=== PATIENT | female | born 1995 | race Caucasian/White ===

== ENCOUNTER 2025-01-02 16:21 | Emergency (ER) | payer OTHER, SELFPAY ==
[2025-01-02 16:22] VITALS: BMI 21.3
[2025-01-02 16:28] VITALS: BP 131/95
[2025-01-02 17:00] LABS: Hematocrit 38.9 % (37.0-47.0); Hemoglobin 13.3 g/dL (12.0-16.0); Mean Corp Hgb Conc. 34.2 g/dL (33.0-37.0); Mean Corpuscular Volume 89.2 fL (81.0-99.0); Nucleated Red Blood Cells % 0 %; Platelet Count 345 10^3/uL (130-400); Red Cell Dist. Width 13.0 % (11.5-14.5)
[2025-01-02 17:14] LABS: HCG, Serum Qualitative Screen Negative
[2025-01-02 17:20] LABS: ALT (SGPT) 16 U/L (0-35); AST (SGOT) 28 U/L (14-36); Albumin 4.8 g/dl (3.5-5.0); Alkaline Phosphatase 91 U/L (38-126); Blood Urea Nitrogen 8 mg/dl (7-17); Calcium 10.0 mg/dl (8.4-10.2); Carbon Dioxide 23 mmol/L (22-30); Chloride 107 mmol/L (98-107); Glucose 107 mg/dl (70-99); Potassium 3.8 mmol/L (3.5-5.1); Sodium 138 mmol/L (135-145); Total Protein 7.6 g/dl (6.3-8.2); eGFR > 60.00
[2025-01-02 18:23] VITALS: BP 126/81
[2025-01-02 18:30] VITALS: BP 126/81
[2025-01-02 19:00] VITALS: BP 110/74
--- NOTE | 2025-01-02 19:56 | ED.GENMED ---
History of Present Illness
General
Chief Complaint: Numbness
Source: patient
Exam Limitations: none
Time Seen by Provider: 01/02/25 18:01
Nursing documentation reviewed up to this point in time: agreed with
History of Present Illness
History of Present Illness:
Patient to ED with complaint of headache, neck pain with numbness and tingling to her RUE, low temperature reading at home. Denies fever/chills, recent illness. No n/v/. Reports occasional diarrhea. No abdominal pain. Denies any cp/pressure, SOB.
No history of trauma. Had similar symptoms approx 1 year ago, resolved without treatment
Past History
Past History
ED Past Medical History: None
Social History
Tobacco: Non-smoker
Personal: Single
Living: with family
Review of Systems
Review of Systems
Allergies reviewed?: Yes
All Other Systems: ROS reviewed and negative except as documented in HPI and ROS
Constitutional: Reports no symptoms
EENT: Reports no symptoms
Respiratory: Reports no symptoms
Cardiac: Reports no symptoms
ABD/GI: Reports no symptoms
: Reports no symptoms
Musculoskeletal: Reports neck pain
Skin: Reports no symptoms
Neurological: Reports headache and numbness (Numbness and tingling RUE)
Psychiatric: Reports no symptoms
Phy Exam
General Physical Exam
General Presentation: well appearing and no apparent distress
General age: appears stated age
General Skin: warm and dry
General Habitus: normal
ENT Exam
ENT Exam: EOMI, TM's normal, pharynx normal, neck supple, normocephalic, swallowing well and other (No meningeal s/s)
Eye Exam
Eye Exam: PERRL, EOMI and conjunctiva normal
Cardiovascular Exam
Cardiovascular Exam: regular rate/rhythm and no edema
Pulmonary Exam
Pulmonary Exam: lungs clear and no respiratory distress
Gastrointestinal Exam
Gastrointestinal Exam: normal bowel sounds, non tender, soft and no organomegaly
Neurological Exam
Neurological Exam: alert, oriented x3, no motor deficits, no sensory deficits and speech normal
Musculoskeletal Exam
Musculoskeletal Exam: full ROM and neuro vasc intact
Skin Exam
Skin Exam: normal color, warm/dry and no rash
Psychiatric Exam
Psychiatric Exam: normal mood/affect
Course
Orders/Labs/Results
Orders:
Orders
01/02/25 16:31
Test Result ONCE
01/02/25 16:38
C-Reactive Protein Urgent
Comment: ADD ON
Complete Blood Count/With Diff Urgent
Comprehensive Metabolic Panel Urgent
Erythrocyte Sed Rate Urgent
Comment: ADD ON
HCG, Serum Qualitative Screen Urgent
Lyme Progressive Urgent
Comment: ADD ON
TSH Reflex To Free T4 Urgent
Comment: ADD ON
01/02/25 19:15
Add On- LAB Urgent
Tests Added?: TSH reflex free T4, sed rate, crp, lyme progressive
01/02/25 19:16
CT Head W/o Iv Contrast Urgent
Comment:
Reason For Exam: pain
Cervical Spine wo Contrast CT [CT Cervical Spine W/o Iv Contr] Urgent
Comment:
Reason For Exam: pain, RUE weakness, numbness
Abnormal Lab Results
01/02/25
16:38
Absolute Lymphs (auto) 3.9 H 10^3/uL
(1.2-3.4)
Glucose 107 H mg/dl
(70-99)
01/02/25 16:38
01/02/25 16:38
Vital Signs
Initial and Last Documented VS:
Initial Vital Signs
Temp Pulse Resp BP Pulse Ox
98.1 F 72 16 131/95 100
01/02/25 16:28 01/02/25 16:28 01/02/25 16:28 01/02/25 16:28 01/02/25 16:28
Last Documented Vital Signs
Temp Pulse Resp BP Pulse Ox
98.1 F 68 17 109/86 100
01/02/25 16:28 01/02/25 18:30 01/02/25 18:30 01/02/25 20:00 01/02/25 20:01
*Radiology
Radiology exam reviewed: radiology read reviewed
*Pulse Oximetry
SaO2: 100
Oxygen Mode of Delivery: Room air
Patient hypoxic: no
*Critical Care Note
Total Time (30-74mins, 75-104mins- exclusive of procedures): Not Applicable
Update Note
Update Note:
Patient to ED with report of neck pain, nubness and tingling to RUE, low body temp at home. VSS, she remains afebrile (98.1). Labs reviewed. CBC, CMP, TSH, inflammatory markers - no concerning findings. CT of head, neck neg for acute findings.
WIll discharge home and she will ry [facility] as she had orignially planned. Given instructions on s/s to return to ED and she is agreeable to plan.
ED Attending Note
-
Portions of this chart may have been created with voice recognition software.� Occasional wrong word or��sound alike� substitutions may have occurred due to the inherent limitations of voice recognition software.
Discharge Plan
Departure
Patient Disposition: Home (Routine Discharge)
Date of Disposition: 01/02/25
Time of Disposition: 21:01
Patient with high blood pressure during this ER visit?: No
Condition: Good
Covid-19: Not Applicable
Discharge Problem:
Arm numbness, Neck pain
Instructions: Paresthesia (DC), Neck pain - ED (DC)
Prescriptions:
No Action
amoxicillin-pot clavulanate [Augmentin] 1 EACH tablet
1 tab PO Q12H Qty: 20 0RF
Referrals:
UNKNOWN - PT DOES,NOT KNOW [Family Provider]
Activity Restrictions/Additional Instructions:
Follow up with neurology as planned. Return to the emergency department immediately for any changes in/worsening of your symptoms.
Interventions
Interventions:
*Risk Screen - Suicide Last Done: 01/02/25 16:30
*General Assessment Last Done: 01/02/25 19:15
*Neglect/Abuse Screening Last Done: 01/02/25 16:30
*ED- Fall Risk Assessment Last Done: 01/02/25 19:15
*ED COVID-19 Vaccine History Last Done: 01/02/25 19:15
ED- Neurological Assessment Last Done: 01/02/25 18:31
Discharge Date and Time
Print Language: [id number]
[2025-01-02 20:00] VITALS: BP 109/86
[2025-01-02 20:00] LABS: C-Reactive Protein < 5.00 mg/L (0.0-10.00)
[2025-01-02 21:00] VITALS: BP 110/76
== END 2025-01-02 21:16 | disposition home or self-care (01) ==
LOC: EMR 16:21
PROVIDERS: Emergency Medicine; EMERGENCY PHYSICIAN Emergency Medicine
DX: R20.2 Paresthesia of skin (principal); M54.2 Cervicalgia
CPT/HCPCS: 99284; 70450; 72125; 80053; 84443; 84703; 85025; 85652; 86140; 86618

== ENCOUNTER → 2025-01-27 07:39 | Outpatient (REF) | payer OTHER, SELFPAY | LOC: MRI 07:39 | PROVIDERS: ATTENDING PHYSICIAN Registered Nurse | DX: R26.9 Unspecified abnormalities of gait and mobility (principal); M62.81 Muscle weakness (generalized); R29.898 Other symptoms and signs involving the musculoskeletal system; G62.9 Polyneuropathy, unspecified | CPT/HCPCS: 72158; A9575 ==

== ENCOUNTER → 2025-02-01 18:18 | Outpatient (REF) | payer OTHER, SELFPAY | LOC: MRI 18:18 | PROVIDERS: ATTENDING PHYSICIAN Registered Nurse; FAMILY PHYSICIAN Nurse Practitioner Adult Health | DX: R26.9 Unspecified abnormalities of gait and mobility (principal); R29.898 Other symptoms and signs involving the musculoskeletal system | CPT/HCPCS: 70553; 72156; A9575 ==

== ENCOUNTER → 2025-02-07 17:36 | Outpatient (REF) | payer OTHER, SELFPAY | LOC: MRI 17:36 | PROVIDERS: ATTENDING PHYSICIAN Registered Nurse | DX: R26.9 Unspecified abnormalities of gait and mobility (principal); M62.81 Muscle weakness (generalized); R29.898 Other symptoms and signs involving the musculoskeletal system; G62.9 Polyneuropathy, unspecified | CPT/HCPCS: 72157; A9575 ==